=== PATIENT | female | born 1970 | race Caucasian/White ===

== ENCOUNTER 2017-08-07 20:39 | Emergency (ER) | payer OTHER ==
[2017-08-07] MEDS ORDERED: RINGERS SOLUTION,LACTATED 1,000 ML IV ONE (21:19)
[2017-08-07 21:52] LABS: APPEARANCE,URINE SLIGHTLY-CLOUDY; BILIRUBIN,URINE NEGATIVE (NEGATIVE); COLOR,URINE YELLOW; GLUCOSE, URINE 150 mg/dL (NEGATIVE); KETONES,URINE 20 mg/dL (NEGATIVE); LEUKOCYTE ESTERASE,URINE NEGATIVE (NEGATIVE); NITRITE,URINE NEGATIVE (NEGATIVE); PROTEIN,URINE NEGATIVE (NEGATIVE); URINE SPECIFIC GRAVITY 1.018
[2017-08-07] MEDS ORDERED: ONDANSETRON HCL INJ/PF 4 MG/2 ML SDV IV ONE (22:01)
--- NOTE | 2017-08-07 22:04 | ER Document Report ---
ED General - General Chief Complaint: Dizziness, possible blood sugar problem Stated Complaint: DIZZINESS Time Seen by Provider: 08/07/17 21:19 Notes: Patient is a 47-year-old female with a past medical history of type 2 diabetes who presents with concerns of vertigo, lightheadedness and 2 episodes of vomiting. Patient states that over the course of approximately 15-20 minutes she became increasingly lightheaded and dizzy. She states that the dizziness got to the point where it actually made her quite nauseated and she began having vomiting. Patient states that her symptoms came on gradually and have overall resolved since onset. She reports that nothing seemed to improve or worsen her symptoms. She denies a history of similar symptoms in the past. She has not seen her primary care doctor regarding today's concerns. She denies any associated chest pain, abdominal pain, weakness, numbness, confusion , or inability to ambulate. She states she has been taking all medications as directed. She denies any head trauma. No visual changes. No headache. TRAVEL OUTSIDE OF THE [place] IN LAST 30 DAYS: No Past Medical History - General Information source: Patient - Social History Smoking Status: Never Smoker Frequency of alcohol use: None Drug Abuse: None Lives with: Family Family History: Reviewed & Not Pertinent Review of Systems - Review of Systems Notes: Constitutional: Negative for fever. HENT: Negative for sore throat. Eyes: Negative for visual changes. Cardiovascular: Negative for chest pain. Respiratory: Negative for shortness of breath. Gastrointestinal: Negative for abdominal pain, positive for nausea and vomiting Genitourinary: Negative for dysuria. Musculoskeletal: Negative for back pain. Skin: Negative for rash. Neurological: Negative for headaches, weakness or numbness. 10 point ROS negative except as marked above and in HPI. Physical Exam - Vital signs Vitals: Pulse Resp BP Pulse Ox 79 17 152/72 H 99 08/07/17 20:45 08/07/17 20:45 08/07/17 20:45 08/07/17 20:45 Interpretation: Hypertensive Notes: PHYSICAL EXAMINATION: GENERAL: Well-appearing, well-nourished and in no acute distress. HEAD: Atraumatic, normocephalic. EYES: Pupils equal round and reactive to light, extraocular movements intact, sclera anicteric, conjunctiva are normal. ENT: nares patent, oropharynx clear without exudates. Moderately dry mucous membranes. NECK: Normal range of motion, supple without lymphadenopathy LUNGS: Breath sounds clear to auscultation bilaterally and equal. No wheezes rales or rhonchi. HEART: Regular rate and rhythm without murmurs ABDOMEN: Soft, nontender, normoactive bowel sounds. No guarding, no rebound. No masses appreciated. EXTREMITIES: Normal range of motion, no pitting or edema. No cyanosis. NEUROLOGICAL: Face symmetric. Tongue protrudes midline. Extraocular motions intact. Pupils are 2 mm and equally reactive. Normal speech, normal gait. 5 out of 5 strength in both the distal and proximal upper and lower extremities bilaterally. Sensation is grossly intact throughout. Finger to nose testing normal. Pronator drift normal. PSYCH: Normal mood, normal affect. SKIN: Warm, Dry, normal turgor, no rashes or lesions noted. Course - Re-evaluation Re-evalutation: 08/07/17 22:03 Patient presents with an episode of lightheadedness versus vertigo with associated vomiting and diaphoresis. The symptoms have since resolved. Patient states she overall feels well at time of my assessment. She denies any focal complaints at this time other than feeling somewhat jittery. No focal neurologic deficits on examination. She denies any chest pain or shortness of breath. EKG without ischemic changes. Troponin is pending. She denies any symptoms to suggest a cerebellar infarction, ambulatory without difficulty, normal finger-nose and heel to shelley testing. She has no nystagmus on examination. She denies any tinnitus or fullness in her ears to suggest a middle ear pathology. She does admit to poor hydration today and does appear clinically dehydrated on examination. Will obtain basic laboratories, provide IV fluids, monitor closely and reassess the patient 08/07/17 23:42 Patient continues to feel very well, denies any further dizziness, no chest pain , lightheadedness, vomiting or shortness of breath. She has ambulated around the emergency department without any difficulty. At this time will discharge with return precautions and follow-up recommendations. Verbal discharge instructions given a the bedside and opportunity for questions given. Medication warnings reviewed. Patient is in agreement with this plan and has verbalized understanding of return precautions and the need for primary care follow-up in the next 24-72 hours. - Vital Signs Vital signs: Temp Pulse Resp BP Pulse Ox 97.6 F 80 13 110/64 96 08/07/17 23:42 08/07/17 21:59 08/07/17 23:01 08/07/17 23:00 08/07/17 23:01 - Laboratory Result Diagrams: 08/07/17 22:50 Laboratory results interpreted by me: 08/07/17 08/07/17 08/07/17 20:42 21:42 22:50 Creatinine 0.44 L Glucose 196 H POC Glucose 192 H Urine Glucose (UA) 150 H Urine Ketones 20 H Urine Urobilinogen 2.0 H - EKG Interpretation by Me Additional EKG results interpreted by me: 08/07/17 23:42 Sinus rhythm. Rate 73. No ST elevations or depressions. QTC is 446. Discharge - Discharge Clinical Impression: Dizziness, Dehydration Nausea and vomiting Qualifiers: Vomiting type: unspecified Vomiting Intractability: non-intractable Qualified Code(s): R11.2 - Nausea with vomiting, unspecified Condition: Good Disposition: HOME, SELF-CARE Additional Instructions: You were seen today for lightheadedness/dizziness. The exact cause of your symptoms is unclear but your workup here is reassuring without any concerning findings. Please follow closely with your primary care physician in the next 1- 3 days. Return if you pass out, have additional episodes of lightheadedness, develop weakness/numbness, have persistent vomiting, chest pain, shortness of breath or any other symptoms that are concerning to you Prescriptions: Meclizine HCl [Antivert 25 mg Tablet] 25 mg PO TID PRN #21 tablet PRN Reason:
[2017-08-07 23:25] LABS: ANION GAP 9 (5-19); BLOOD UREA NITROGEN 11 mg/dL (7-20); CARBON DIOXIDE 24 mmol/L (22-30); CHLORIDE 104 mmol/L (98-107); GLUCOSE 196 mg/dL (75-110)
[2017-08-07 23:55] VITALS: BP 110/64
--- NOTE | 2017-08-08 09:05 | EKG REPORT ---
SEVERITY:- BORDERLINE ECG - SINUS RHYTHM BORDERLINE T ABNORMALITIES, ANT-LAT LEADS : Confirmed by: Poonam Hdz 08-Aug-2017 09:05:25
== END 2017-08-07 23:57 | disposition home or self-care (01) ==
LOC: ER 20:39
DX: R42 Dizziness and giddiness (principal); E86.0 Dehydration; R11.2 Nausea with vomiting, unspecified; E11.9 Type 2 diabetes mellitus without complications
CPT/HCPCS: 93005; 99284; 96360; 36415; 82962; 84703; 80048; 81001; 84484; 93010; J7120